=== PATIENT | male | born 1970 | race Caucasian/White ===

== ENCOUNTER → 2023-11-09 08:17 | Outpatient (BNVA) | payer OTHER, SELFPAY | PROVIDERS: PCP Family Medicine; Visit Provider Podiatrist Foot & Ankle Surgery | DX: M21.611 Bunion of right foot (principal); M21.612 Bunion of left foot; M1A.0710 Idiopathic chronic gout, right ankle and foot, without tophus (tophi); M1A.0720 Idiopathic chronic gout, left ankle and foot, without tophus (tophi) | CPT/HCPCS: 73630 ==